=== PATIENT | male | born 2000 | race Caucasian/White ===

== ENCOUNTER 2019-03-09 18:44 | Emergency (ER) | payer BC ==
[2019-03-09] MEDS ORDERED: Diphtheria,Pertussis(Acell),Tetanus Vaccine 0.5 ML SDV IM ONE (19:08)
[2019-03-09] MEDS ORDERED: Bacitracin/Neomycin/Polymyxin B Oint 0.9 GM U/D Packet TOP ONE (19:49)
--- NOTE | 2019-03-09 20:00 | EDM.PDOC ---
ED HPI GENERAL MEDICAL PROBLEM - General Chief Complaint: Bite:Animal, Insect Stated Complaint: RACOON BITE Time Seen by Provider: 03/09/19 19:00 Source of Information: Reports: Patient History Limitations: Reports: No Limitations - History of Present Illness Onset: Today Duration: Hour(s): (4hoursago) Location: Reports: Upper Extremity, Right (Right right index finger superficial laceration secondary to Coumadin by) Quality: Reports: Ache Severity: Mild Improves with: Reports: None Worsens with: Reports: Movement Context: Reports: Other (racoon byte) Associated Symptoms: Reports: No Other Symptoms 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 Right Finger-Middle Pain Score (Numeric/FACES): 2 - Related Data Allergies Allergy/AdvReac Type Severity Reaction Status Date / Time amoxicillin Allergy Rash Verified 03/09/19 18:46 latex Allergy Rash Verified 03/09/19 18:46 Penicillins Allergy Rash Verified 03/09/19 18:46 Home Meds: Home Meds Cefprozil [Cefzil] 500 mg PO BID 19 Days #14 tablet 03/09/19 [Rx] Past Medical History Hematologic History: Reports: Other (See Below) 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 ED EXAM, ANIMAL BITE - Physical Exam Exam: See Below Exam Limited By: No Limitations General Appearance: Alert, WD/WN, No Apparent Distress Ears: Normal External Exam, Normal Canal, Hearing Grossly Normal, Normal TMs Nose: Normal Inspection, Normal Mucosa, No Blood Throat/Mouth: Normal Inspection, Normal Lips, Normal Teeth, Normal Gums, Normal Oropharynx, Normal Voice, No Airway Compromise Head: Atraumatic, Normocephalic Neck: Normal Inspection, Supple, Non-Tender, Full Range of Motion Respiratory/Chest: No Respiratory Distress, Lungs Clear, Normal Breath Sounds, No Accessory Muscle Use, Chest Non-Tender Cardiovascular: Normal Peripheral Pulses, Regular Rate, Rhythm, No Edema, No Gallop, No JVD, No Murmur, No Rub GI/Abdominal: Normal Bowel Sounds, Soft, Non-Tender, No Organomegaly, No Distention, No Abnormal Bruit, No Mass (Male) Exam: Circumcised, Deferred Rectal (Males) Exam: Deferred Back Exam: Normal Inspection, Full Range of Motion, NT Extremities: Normal Inspection, Normal Range of Motion, Non-Tender, Normal Capillary Refill, No Pedal Edema Neurological: Alert, Oriented, CN II-XII Intact, Normal Cognition, Normal Gait, Normal Reflexes, No Motor/Sensory Deficits Psychiatric: Normal Affect, Normal Mood Skin Exam: Warm/Dry, DRY, I, Normal Color, NR Course - Vital Signs Last Recorded V/S: Last Vital Signs Temp 98.9 F 03/09/19 18:53 Pulse 87 03/09/19 18:53 Resp 16 03/09/19 18:53 BP 125/86 03/09/19 18:53 Pulse Ox 96 03/09/19 18:53 - Orders/Labs/Meds Orders: Active Orders 24 hr Category Date Time Status Vaccines to be Administered [RC] PER UNIT ROUTINE Care 03/09/19 19:08 Active Meds: Medications Discontinued Medications Generic Name Dose Route Start Last Admin Trade Name Freq PRN Reason Stop Dose Admin Diphtheria/Tetanus/Acell Pertussis 0.5 ml 03/09/19 19:08 03/09/19 19:13 Adacel IM 03/09/19 19:09 0.5 ml .ONCE ONE Administration Neomycin/Polymyxin/Bacitracin 1 each 03/09/19 19:49 Triple Antibiotic Oint TOP 03/09/19 19:50 ONETIME ONE Departure - Departure Time of Disposition: 20:06 Disposition: Home, Self-Care 01 Condition: Good Clinical Impression: Animal bite of finger - Discharge Information *PRESCRIPTION DRUG MONITORING PROGRAM REVIEWED*: No *COPY OF PRESCRIPTION DRUG MONITORING REPORT IN PATIENT ANGELIKA: No Prescriptions: Cefprozil [Cefzil] 500 mg PO BID 19 Days #14 tablet Instructions: Animal Bite, Adult, [id number] Referrals: Leatha Ramos PA-C [Primary Care Provider] - Care Plan Goals: Animal bite to right middle finger with open-angle skin superficial concerns about 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 - My Orders Last 24 Hours: My Active Orders 03/09/19 19:08 Vaccines to be Administered [RC] PER UNIT ROUTINE - Assessment/Plan Last 24 Hours: My Active Orders 03/09/19 19:08 Vaccines to be Administered [RC] PER UNIT ROUTINE
== END 2019-03-09 20:15 | disposition home or self-care (01) ==
LOC: LL.ED 18:44
DX: S61.350A Open bite of right index finger with damage to nail, initial encounter (principal); W55.51XA Bitten by raccoon, initial encounter; Z88.1 Allergy status to other antibiotic agents; Z91.040 Latex allergy status; Z88.0 Allergy status to penicillin
CPT/HCPCS: 90471; 90715; 99283